=== PATIENT | female | born 1935 | race Caucasian/White ===

== ENCOUNTER 2017-05-01 16:49 | Observation (INO) | payer MEDICARE, OTHER ==
[~2017-05-01] VITALS: Ht 167.6 cm; Wt 65.8 kg
--- NOTE | ~2017-05-01 | DS ---
PATIENT'S NAME: TEDDY DELONG [facility] AGE: 82 Y [address] ROOM: [address] [address] LOCATION: GPCU ADMIT DATE: 05/01/2017 Discharge Summary DISCHARGE DATE: 05/03/2017 FAMILY PHYSICIAN: Physician, Unknown ATTENDING PHYSICIAN: Trevon Riojas REASON FOR ADMISSION: Hypertensive urgency/emergency with associated orthostatic hypotension. ADMISSION DIAGNOSIS: Hypertensive emergency. SECONDARY DIAGNOSES: 1. Orthostatic hypotension. 2. Essential hypertension. 3. Hypothyroidism. 4. Depression. 5. Strong family history of coronary artery disease. 6. Anxiety disorder. 7. Chronic hypokalemia. PENDING LABS AND TESTS AT THE TIME OF DISCHARGE: Plasma metanephrines sent out on May 02 to follow up with PCP. HOSPITAL COURSE: This is a very pleasant 82-year-old female with a medical history as listed above, notable for hypertension and hypothyroidism, who presented noting that she "was not feeling right." This had been going on for a few days. She notes these symptoms when she feels her blood pressure is high and gets an associated headache. She took her blood pressure on the date of admission noting that it was in the 200s. The patient was notably confused with dysarthria and instability. Upon arrival to [facility] Emergency Department initially, CAT scan, echocardiography, Dopplers, and labs were all unremarkable, except for mildly low potassium and included no evidence of stroke. TTE showed grade 1 diastolic dysfunction with normal ejection fraction. They had planned to do Holter monitor, results of this are not available at the time of admission here. Chronically, the patient does take losartan 100 mg and amlodipine 10 mg daily for her blood pressure and reports it is usually relatively stable. However, she does note postural instability and was found to, as mentioned, be orthostatic during her stay here. She becomes dizzy and lightheaded with blood pressures in the 110s as opposed to lower. Further workup during stay did note an MRI which was again re- assuring, no evidence of acute stroke. No evidence of arrhythmia was noted on telemetry during stay. The patient was given 2 L of IV fluids for her orthostatic symptoms. Throughout stay, blood pressure was often elevated to 160s; however, she remained orthostatic. This PATIENT'S NAME: TEDDY DELONG [facility] AGE: 82 Y [address] ROOM: [address], [place] [address] LOCATION: GPCU ADMIT DATE: 05/01/2017 Discharge Summary DISCHARGE DATE: 05/03/2017 FAMILY PHYSICIAN: Physician, Unknown ATTENDING PHYSICIAN: Trevon Riojas prompted further evaluation with plasma metanephrines given ongoing headaches, recurrent episodic hypertension, and orthostatic hypotension. Results of this test are still pending at the time of discharge. There is no other evidence to suggest an ongoing neurologic disorder to cause autonomic dysfunction or other obvious contributors. The patient was discharged home on her home prior antihypertensives as noted above as well as addition of Coreg 6.125 mg BID. No other significant medication changes were made during her stay. CONSULTANTS: None. DISCHARGE PHYSICAL EXAMINATION: VITAL SIGNS: Last set of vitals: Temp 98.2, pulse in the 80s, blood pressure 123/71, saturating 94% on room air. GENERAL: The patient is in no acute distress, sitting up in chair, comfortable. CARDIOVASCULAR: Regular rate and rhythm. No murmurs, rubs, or gallops. LUNGS: Clear to auscultation bilaterally. Normal effort on room air. ABDOMEN: Soft, nontender, and nondistended. No masses appreciated. EXTREMITIES: Without significant edema. SHAD hose in place. NEUROLOGIC: Conversive, cooperative, and pleasant. Alert and oriented. No rigidity appreciated on exam. No frontal release signs. DISPOSITION: The patient was discharged home with family support and advised on a general diet. Has no indication for cardiac diet found during results of testing. She was advised on slow return to activity as tolerated. She should have a followup visit with Dr. Gavin in [place] in a week and will follow up with the urine metanephrines at that time. Time spent on date of discharge including direct patient care and coordination of discharge activities 32 minutes. MD DELORES GUERRERO/ilene /[id number] d: 05/04/17 0037 t: 05/04/17 1511, DISCHARGE SUMMARY
--- NOTE | ~2017-05-01 | ER ---
PATIENT'S NAME: TEDDY DELONG [facility] AGE: 82 Y [address] ROOM: [id number] [place], [place] [address] LOCATION: GPCU ADMIT DATE: 05/01/2017 ER/Outpatient Report DISCHARGE DATE: FAMILY PHYSICIAN: PHYSICIAN, UNKNOWN ATTENDING PHYSICIAN: COURT RIOJAS Time of Arrival: 1649 hours. Time of evaluation: 1700 hours. CHIEF COMPLAINT: Elevated blood pressure, trouble walking, confusion. HISTORY OF PRESENT ILLNESS: This is an 82-year-old female, who presents to the ER with her granddaughter, who states that she was just admitted in the [facility]. She states that she has a history of high blood pressure, and she is here from [place], [place], visiting family. She thought that she could get by with missing a few days of her high blood pressure medication because she was waiting for her to be refilled in her hometown, and she states on Sunday she had an episode where her blood pressure got really high. she felt like she could not get her words out right, in which she was having troubles walking. When she was evaluated in the [facility], she was found to have hypertensive urgency, and they were also concerned that she had a TIA. She stayed over the weekend, was dismissed on Sunday. They tried to get a hold of the laundromat manager for her in [place] to follow up with but were unable to. The patient states that she still has continued to feel the same since she left the hospital and complains of a headache, dizziness that is worse with when she is up and better when she lies down. She states that she feels a little bit unsteady as well when she is walking. The patient's family brought her here, so that she could be evaluated by a laundromat manager and to figure out what is going on with her. She has had no recent fever or chills. No troubles with bowel movements or urination. She states she has been eating and drinking okay. She does have a chronic dry cough. She has had no nausea or vomiting. No diarrhea or constipation. She had several tests done in [place], and she just had her Holter monitor removed. ALLERGIES: HYDROCODONE. MEDICATIONS: Please see medication list in nurse's notes. PAST MEDICAL HISTORY: Hypertension. PATIENT'S NAME: TEDDY DELONG [facility] AGE: 82 Y [address] ROOM: [id number] [place], [place] [address] [facility] ADMIT DATE: 05/01/2017 ER/Outpatient Report DISCHARGE DATE: FAMILY PHYSICIAN: PHYSICIAN, UNKNOWN ATTENDING PHYSICIAN: COURT RIOJAS SOCIAL HISTORY: Denies smoking, drug, or alcohol use. REVIEW OF SYSTEMS: All systems were reviewed and were negative with the exception of those discussed in the HPI. PHYSICAL EXAMINATION: VITAL SIGNS: Weight 67 kg taken, blood pressure is 179/81, pulse 72, respirations 20, temperature 98.1 degrees tympanically, and saturations 97% on room air. Jamari Coma Score is 15. GENERAL: Alert, calm, well-developed, 82-year-old, in no acute distress. HEENT: Head: Normocephalic. She does display moist mucous membranes. Eyes: Pupils are equal and reactive to light. She does have some nystagmus on her right gaze. NECK: Supple. No lymphadenopathy. LUNGS: Clear to auscultation bilaterally. HEART: Regular rate and rhythm. ABDOMEN: Soft, nontender. She has good bowel sounds throughout. EXTREMITIES: No clubbing or cyanosis. She has compression hose noted to her bilateral lower extremities. NEURO: Cranial nerves 2 through 12 grossly intact. Gait is steady with some assistance. SKIN: Warm, dry, and intact. LABORATORY DATA AND X-RAYS: CBC: White count is 6.0, hemoglobin is 13.6, platelets 217, INR is 1.02. CMS: Potassium is 3.4, anion gap is 8.4, glucose is 135, BUN 26, creatinine is 0.9, GFR 61, magnesium 2.5. CPK is 99, CK-MB is 1.0, troponin I is less than 0.040. ProBNP is 553. CPK on the second set of enzymes is 96, CK-MB is 1.4, troponin I is less than 0.040. Free T4 is 1.2, TSH is 0.754. Urinalysis is negative for any infection. EKG shows sinus rhythm. Chest x-ray was negative for any infiltrates. IMPRESSION: 1. Hypertension. 2. Dizziness. 3. Orthostatic. 4. Hypokalemia ASSESSMENT AND PLAN: We did do orthostatics initially, and her systolic blood pressure went from 174 down to 135 when she stood up. We did give her a liter of fluids, which did improve her orthostatic blood pressures. The patient's family did not feel comfortable with her going home. I want her to be admitted for further PATIENT'S NAME: TEDDY DELONG [facility] AGE: 82 Y [address] ROOM: [place] [address] [facility] ADMIT DATE: 05/01/2017 ER/Outpatient Report DISCHARGE DATE: FAMILY PHYSICIAN: PHYSICIAN, UNKNOWN ATTENDING PHYSICIAN: COURT RIOJAS assessment. I did call the Hospitalist Service and talked to Dr. Riojas, and he will be admitting the patient for further observation. The patient and the patient's family understand and agree with care. RONNA DAVIDSON PA-C FOR MD MANDI SADLER/ilene /[id number] d: 05/02/179 t: 05/08/17 1019, OUTPATIENT REPORT
--- NOTE | ~2017-05-01 | HP ---
PATIENT'S NAME: TEDDY DELONG [facility] AGE: 82 Y [address] ROOM: [address] [place], [place] [address] [facility] ADMIT DATE: 05/01/2017 History & Physical DISCHARGE DATE: FAMILY PHYSICIAN: PHYSICIAN, UNKNOWN ATTENDING PHYSICIAN: COURT COOPER DATE OF SERVICE: CHIEF COMPLAINT: Not feeling right. HISTORY OF PRESENT ILLNESS: An 82-year-old lady with a past medical history of hypertension and hypothyroidism presented to the emergency department in [place] at [facility] for not feeling right. The patient actually 4 to 5 days ago started not feeling right and she stated that she gets this feeling when she thinks that her blood pressure is high. She is originally from [place] and she was visiting her granddaughter up in [place]. She took her blood pressure that day and it was up in the 200s. When the granddaughter got home, the patient was confused, had some dysarthria, and balance was also not stable. The patient was taken to the emergency department in [facility]. Initial workup was done there including a CT scan, echocardiography, Dopplers, and CBC, BMP, troponins, which were all unremarkable except for the low potassium. They also put her on Holter monitoring and she returned that Holter monitoring yesterday. Did not add any additional antihypertensive medication except changing the timing of the dose. On my encounter here in the emergency department, she stated that she was again feeling that her blood pressure is going up and she wanted to take care of that and not have the same episode. On inquiry, she said that she had throbbing headache initially when she went to the [facility], but she does not have it anymore. She also said that she was dizzy and "running into saleh," but she does not have it either anymore. No shortness of breath. No cough production. No sputum production. No chest pain. No palpitations. No abdominal pain. No burning on urination. No constipation or diarrhea. No PND. No orthopnea or leg swelling reported. REVIEW OF SYSTEMS: All other systems reviewed were negative except what is mentioned in the HPI. PAST MEDICAL HISTORY: Hypertension, hypothyroidism, GERD, asthma, depression, and osteoarthritis. PAST SURGICAL HISTORY: Appendectomy, hysterectomy, and parathyroidectomy. PATIENT'S NAME: TEDDY DELONG [facility] AGE: 82 Y [address] ROOM: [id number] [place], [place] [address] LOCATION: GPCU ADMIT DATE: 05/01/2017 History & Physical DISCHARGE DATE: FAMILY PHYSICIAN: PHYSICIAN, UNKNOWN ATTENDING PHYSICIAN: COURT COOPER ALLERGIES: THE PATIENT IS ALLERGIC TO HYDROCODONE. SOCIAL HISTORY: Never a smoker. No alcohol or drug abuse. Lives by herself in [place]. FAMILY HISTORY: Significant for heart failure in mom. PHYSICAL EXAMINATION: VITAL SIGNS: Blood pressure on arrival to the emergency department was systolics were in the 200s, heart rate 62, afebrile, satting 95% on room air, and respiratory rate 16. GENERAL: No acute distress. Alert and oriented x3. HEENT: Head: Atraumatic, normocephalic. Eyes: Nonicteric. No pallor. Oropharynx: Moist mucous membranes. CARDIOVASCULAR: S1, S2. No murmurs, gallops, or rubs. LUNGS: Clear to auscultation bilaterally. ABDOMEN: Soft, nontender, nondistended. Bowel sounds present. EXTREMITIES: No clubbing, cyanosis, or edema. PSYCH: Normal affect, mood, and speech. NEUROLOGIC: Cranial nerves 2 through 12 intact. No motor or sensory deficit. MUSCULOSKELETAL: No muscle tenderness or joint swelling noted. ENDOCRINE: No thyromegaly or myxedema noted. LYMPHATICS: No lymphangiitis or lymphadenopathy noted. LABORATORY DATA: EKG done in the emergency department showed sinus rhythm with some ST-T wave changes in the anterior leads, which are the same from the previous EKG as well. Troponin levels were done in the emergency department, which were negative, and have been negative in the past as well. No chest pain have been reported here. Rest of the labs were also unremarkable except potassium was 3.4. Chest x-ray does not show any acute infiltrate. ASSESSMENT: 1. Hypertensive urgency. 2. Dizziness/confusion. 3. Hypokalemia. 4. Gastroesophageal reflux disease. 5. Concern for stroke. PLAN: We are going to admit this lady for observation. We are going to rule out stroke with the MRI. We are going to obtain records of the Holter monitoring from the other hospital. She was found to be orthostatic hypotensive on PATIENT'S NAME: TEDDY DELONG [facility] AGE: 82 Y [address] ROOM: [facility] [place], [place] [address] [facility] ADMIT DATE: 05/01/2017 History & Physical DISCHARGE DATE: FAMILY PHYSICIAN: PHYSICIAN, UNKNOWN ATTENDING PHYSICIAN: COURT COOPER arrival to the ER and she was given 1 L of IV fluids. We will continue to resuscitate her with 1 more L of LR. Losartan and amlodipine, which she is at home at the maximum dose of 100 mg and 10 mg respectively are not adequate enough at this point to control the blood pressure. The options could be adding a diuretic hydrochlorothiazide and beta-taco. Given that she is already orthostatic, I will choose for Coreg, which can be adjusted tomorrow. If the blood pressure remains elevated, Nephrology consultation can be considered. Replace the potassium. We will continue to monitor for any other source of secondary hypertension as well. I will obtain plasma fractionated metanephrine levels. SCDs for DVT prophylaxis. PT/OT in the morning. Encourage ambulation. The patient is full code. MD RADHA DUKE/ilene /[id number] D: T: HISTORY & PHYSICAL
[2017-05-01 17:49] LABS: BASOPHIL # 0.1 K/uL (0.0-0.2); EOSINOPHIL # 0.2 K/uL (0.0-0.5); EOSINOPHIL % 2.5 %; HEMATOCRIT 40.3 % (30.0-46.0); HEMOGLOBIN 13.6 g/dL (10.0-15.0); LYMPHOCYTE # 1.1 K/uL (0.8-4.0); LYMPHOCYTE % 18.7 %; MCHC 33.7 gm/dL (32.0-36.5); MCV 91.8 fl (83.0-98.0); MONOCYTE # 0.5 K/uL (0.0-1.0); MONOCYTE % 8.8 %; MPV 10.5 fl (9.4-12.4); NEUTROPHIL # (ANC) 4.1 K/uL (1.8-7.8); NRBC % 0 /100WBC (0-0.00); PLATELET COUNT 217 K/uL (150-450); RBC 4.39 M/uL (3.00-5.00); RDW-CV 13.1 % (11.9-14.6)
[2017-05-01 17:58] LABS: INR - (THERAPEUTIC) 1.02 (0.92-1.07); PROTIME 10.7 SECONDS (9.8-11.4); PTT 28 SECONDS (25-32)
[2017-05-01 18:09] LABS: ALBUMIN 3.8 gm/dL (3.5-5.0); ALK PHOS 82 IU/L (33-138); ALT 24 IU/L (12-78); ANION GAP 8.4 (10.0-19.0); AST 18 IU/L (10-40); BLOOD UREA NITROGEN 26 mg/dL (6-24); CALCIUM 9.4 mg/dL (8.5-10.5); CHLORIDE 109 mMol/L (96-110); CO2 29 mMol/L (22-32); CPK 99 IU/L (21-215); CREATININE 0.9 mg/dL (0.5-1.1); MAGNESIUM 2.5 mg/dL (1.8-2.6); POTASSIUM 3.4 mMol/L (3.7-5.1); SODIUM 143 mMol/L (135-145); TOTAL BILIRUBIN 0.3 mg/dL (0.0-1.5); TOTAL PROTEIN 7.2 g/dL (6.0-8.4)
[2017-05-01 18:27] LABS: BILIRUBIN URINE NEGATIVE (NEGATIVE); BLOOD URINE NEGATIVE /UL (NEGATIVE); COLOR URINE YELLOW (YELLOW); GLUCOSE URINE 100 mg/dL (NEGATIVE); KETONE URINE NEGATIVE (NEGATIVE); LEUKOCYTES URINE 25 /UL (NEGATIVE); NITRITE URINE NEGATIVE (NEGATIVE); PROTEIN URINE NEGATIVE (NEGATIVE); TURBIDITY URINE CLEAR (CLEAR); UROBILINOGEN URINE NORMAL (NORMAL)
[2017-05-01 18:34] LABS: EPITHELIAL URINE 0-2 #/HPF (NEGATIVE); RBC URINE NEGATIVE #/HPF (NEGATIVE); WBC URINE 0-2 #/HPF (NEGATIVE)
[2017-05-01 18:35] LABS: AMORPHOUS URINE 2+ (NEGATIVE); BACTERIA URINE RARE (NEGATIVE)
[2017-05-01 20:08] LABS: CPK 96 IU/L (21-215)
[2017-05-01] MEDS ORDERED: ASPIRIN (CHILDR81 MG PO (22:11)
[2017-05-01] MEDS ORDERED: LEVOTHROID(SYN75 MCG PO (22:12)
[2017-05-01] MEDS ORDERED: PROTONIX40 MG PO (22:12)
[2017-05-01] MEDS ORDERED: SINGULAIR10 MG PO (22:13)
[2017-05-01] MEDS ORDERED: LEXAPRO20 MG PO (22:14)
[2017-05-01] MEDS ORDERED: K-TAB ER10 MEQ PO (22:14)
[2017-05-01] MEDS ORDERED: FLONASE 50 MCG/16 GM NOSE (22:15)
[2017-05-01] MEDS ORDERED: COZAAR100 MG PO (22:15)
[2017-05-01] MEDS ORDERED: NORVASC10 MG PO (22:15)
[2017-05-01] MEDS ORDERED: ATIVAN 0.5MG0.5 MG PO (22:16)
[2017-05-01] MEDS ORDERED: ALLEGRA180 MG PO (22:17)
[2017-05-01] MEDS ORDERED: ULTRAM50 MG PO (22:17)
[2017-05-01] MEDS ORDERED: THERA-VITE W/ B1 TAB PO (22:20)
[2017-05-01] MEDS ORDERED: ASCORBIC ACID500 MG PO (22:20)
[2017-05-01] MEDS ORDERED: GLUCOSAMINE CH1 EAC6 PO (22:20)
[2017-05-01] MEDS ORDERED: VITAMIN E400 UNI2 PO (22:21)
[2017-05-01] MEDS ORDERED: VITAMIN D2000 UNIT PO (22:22)
[2017-05-01] MEDS ORDERED: CALCIUM 600 +1 EAC2 PO (22:22)
[2017-05-01] MEDS ORDERED: MUCINEX DM ER1 EAC1 PO (22:23)
[2017-05-01] MEDS ORDERED: TYLENOL ARTHRI650 MG PO (22:23)
[2017-05-01] MEDS ORDERED: SALINE NASAL SP88 ML NOSE (22:24)
[2017-05-02 03:37] LABS: BASOPHIL % 0.8 %; EOSINOPHIL # 0.2 K/uL (0.0-0.5); EOSINOPHIL % 3.6 %; HEMATOCRIT 38.8 % (30.0-46.0); HEMOGLOBIN 13.1 g/dL (10.0-15.0); IMMATURE GRANULOCYTE % 0.2 %; LYMPHOCYTE # 1.4 K/uL (0.8-4.0); LYMPHOCYTE % 28.2 %; MCH 31.4 pg (27.0-34.0); MCHC 33.8 gm/dL (32.0-36.5); MONOCYTE # 0.5 K/uL (0.0-1.0); MONOCYTE % 8.9 %; MPV 10.6 fl (9.4-12.4); NEUTROPHIL # (ANC) 2.9 K/uL (1.8-7.8); NEUTROPHIL % 58.3 %; NRBC % 0 /100WBC (0-0.00); PLATELET COUNT 214 K/uL (150-450); RBC 4.17 M/uL (3.00-5.00)
[2017-05-02 03:55] LABS: ANION GAP 10.6 (10.0-19.0); CALCIUM 8.9 mg/dL (8.5-10.5); CREATININE 0.8 mg/dL (0.5-1.1); POTASSIUM 3.6 mMol/L (3.7-5.1)
[2017-05-03] MEDS ORDERED: COREG6.25 MG PO (13:03)
== END 2017-05-03 14:10 | disposition disaster alternative care site (69) ==
LOC: GMED 16:49 → GPCU 21:24
PROVIDERS: Physician Assistant Medical; ADMIT Internal Medicine
DX: I16.1 Hypertensive emergency (principal); I95.1 Orthostatic hypotension; E03.9 Hypothyroidism, unspecified; F32.9 Major depressive disorder, single episode, unspecified; F41.9 Anxiety disorder, unspecified; E87.6 Hypokalemia; K21.9 Gastro-esophageal reflux disease without esophagitis; Z90.49 Acquired absence of other specified parts of digestive tract; Z82.49 Family history of ischemic heart disease and other diseases of the circulatory system; Z90.710 Acquired absence of both cervix and uterus; M19.90 Unspecified osteoarthritis, unspecified site; Z79.52 Long term (current) use of systemic steroids; Z79.82 Long term (current) use of aspirin; Z79.899 Other long term (current) drug therapy; Z88.6 Allergy status to analgesic agent
CPT/HCPCS: G0378; G8978; G8979; G8980; G8987; G8988; G8989; J0360; J7030; J7120